=== PATIENT | female | born 1995 | race African-American/Black ===

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

== ENCOUNTER 2019-02-13 23:18 | Emergency (ER) | payer MEDICAID ==
[~2019-02-13] VITALS: Ht 162.6 cm; Wt 60.8 kg
[~2019-02-13 23:18] MED LIST changes: -CEFTIN500 MG ORAL; -KEFLEX500 MG ORAL; +LIDOCAINE700 M1 TP; +METHOCARBAMOL500 MG ORAL; +TAMIFLU75 MG ORAL; -TRAMADOL HCL50 MG ORAL; +TYLENOL EXTRA500 MG ORAL; +ZOFRAN ODT4 MG ORAL
--- NOTE | 2019-02-13 23:34 | NUR ---
ED Nurse Note: Pt ambulated to ED from work c/o hives and itching on R forearm, pt states that she has had this symptom as well as lower lip swelling, bottom of her feet swell and itch as well as difficulty breathing every time she eats something for the past week. Pt denies sob at this time. Pt has not taken any medications. VSS. Pt is A&Ox4
[2019-02-13 23:36] VITALS: BP 134/91
[2019-02-13] MEDS ORDERED: BENADRYL25 MG ORAL (23:44)
[2019-02-13] MEDS ORDERED: PREDNISONE20 MG ORAL (23:44)
[2019-02-13] MEDS ORDERED: Solu-MEDROL 125mg Inj IVP ONE (23:45)
[2019-02-13] MEDS ORDERED: DiphenhydrAMINE 50mg/ml Inj IVP ONE (23:45)
--- NOTE | 2019-02-13 23:45 | Emergency Room Report ---
History of Present Illness General Chief Complaint: Allergic Reaction Source: Patient Present Illness HPI This a 23-year-old female with no past medical history. She presents with complaint of allergic reaction. She was eating a beef dish today and broke out in a rash. This been an intermittent problem for last week. She had different type of food like chicken that she cooked at home for last week. She developed these allergic reaction. She does not know what is causing it. Denies any nausea vomiting. No fever chills but no shortness of breath. Did not take anything for this. Been feeling better with partial resolution of rash since she came in here. Allergies: Coded Allergies: No Known Allergies (Unverified , 02/13/19) Patient History Past Medical History: see triage record, old chart reviewed Past Surgical History: none Pertinent Family History: none Social History: Denies: smoking Last Menstrual Period: 12/30/2018 Now: No Immunizations: other Reviewed Nursing Documentation: PMH: Agreed; PSxH: Agreed Nursing Documentation-PMH Past Medical History: No History, Except For Review of Systems Eye: Denies: eye pain, blurred vision ENT: Denies: ear pain, nose congestion, throat swelling Respiratory: Denies: cough, shortness of breath Cardiovascular: Denies: chest pain, palpitations Gastrointestinal: Denies: abdominal pain, diarrhea, nausea, vomiting Musculoskeletal: Denies: back pain, joint pain Skin: Reports: rash Neurological: Denies: headache, numbness Endocrine: Denies: increased thirst, increased urine Hematologic/Lymphatic: Denies: easy bruising All Other Systems: negative except mentioned in HPI Physical Exam Vital Signs Date Time Temp Pulse Resp B/P (MAP) Pulse Ox O2 Delivery O2 Flow Rate FiO2 02/13/19 23:26 98.2 96 14 134/91 (105) 98 Room Air Vitals normal Sp02 EP Interpretation: reviewed, normal General Appearance: well appearing, no apparent distress, alert Head: normocephalic, atraumatic Eyes: bilateral eye PERRL, bilateral eye EOMI ENT: hearing grossly normal, normal pharynx Neck: full range of motion, supple, no meningismus Respiratory: chest non-tender, lungs clear, normal breath sounds Cardiovascular #1: regular rate, rhythm, no murmur Gastrointestinal: normal bowel sounds, non tender, no mass, no organomegaly, no bruit, non-distended Musculoskeletal: back normal, normal range of motion, gait/station normal Psychiatric: mood/affect normal Skin: other - Scattered urticaria on arms and back Medical Decision Making Diagnostic Impression: Primary Impression: Allergic reaction Qualified Codes: T78.40XA - Allergy, unspecified, initial encounter ER Course This patient presents with allergic reaction. No evidence of anaphylaxis. No respiratory issue. No tongue edema. Since the symptoms been occurring at home with her cooking, this is most likely due to an increase in she been using like a spice or condiment. She will need further testing as an outpatient. Last Vital Signs Date Time Temp Pulse Resp B/P (MAP) Pulse Ox O2 Delivery O2 Flow Rate FiO2 02/13/19 23:36 98.2 96 14 134/91 98 Room Air Status: improved Disposition: HOME, SELF-CARE Condition: Stable Scripts Prednisone* (PREDNISONE*) 20 Mg Tablet 40 MG ORAL DAILY, #10 TAB Prov: Maurisio Davenport MD 02/13/19 Diphenhydramine Hcl* (BENADRYL*) 25 Mg Capsule 50 MG ORAL Q6H PRN for Itching, #30 CAP Prov: Maurisio Davenport MD 02/13/19 Patient Instructions: Food Allergy Additional Instructions: Follow-up with your doctor in a week. You may need a referral to see an technical assistant for skin and allergy testing. You are probably allergic to something that you cook with. This may be a spice or condiment. Return if symptoms worsen. Maurisio Davenport MD Feb 13, 2019 23:45
[2019-02-14 00:25] VITALS: BP 134/91
--- NOTE | 2019-02-14 00:25 | NUR ---
ER DISCHARGE NOTE: Patient is cleared to be discharged per ERMD, pt is aox4, on room air, with stable vital signs. pt was given dc and prescription instructions, pt was able to verbalize understanding, pt id band and iv site removed without complications. pt is able to ambulate with steady gait. pt took all belongings. Pt's rash and hives lessened
== END 2019-02-14 00:25 | disposition home or self-care (01) ==
LOC: EMR 23:39
DX: T78.40XA Allergy, unspecified, initial encounter (principal); X58.XXXA Exposure to other specified factors, initial encounter; Y93.9 Activity, unspecified
CPT/HCPCS: 96374; 96375; J1200; J2930; Z7502; 99284

== ENCOUNTER 2019-04-07 09:57 | Emergency (ER) | payer MEDICAID ==
[~2019-04-07] VITALS: Ht 162.6 cm; Wt 61.2 kg
[~2019-04-07 09:57] MED LIST changes: +BENADRYL25 MG ORAL; +PREDNISONE20 MG ORAL
[2019-04-07 10:03] VITALS: BP 126/88
--- NOTE | 2019-04-07 10:13 | NUR ---
ED Nurse Note: pt. aaox4. ambulatory. walked in to er. per pt. she is here due to swelling on the lip since 1999 yesterday; patient had hives on the wrist, facial swelling yesterday. Patient did not take any meds. Reports no breathing problem. No changes in voice noted.
[2019-04-07] MEDS ORDERED: DiphenhydrAMINE 25mg Tab ORAL ONE (10:45)
[2019-04-07] MEDS ORDERED: PREDNISONE20 MG ORAL (10:54)
[2019-04-07] MEDS ORDERED: BENADRYL25 MG ORAL (10:54)
--- NOTE | 2019-04-07 10:56 | Emergency Room Report ---
History of Present Illness General Chief Complaint: Allergic Reaction Source: Patient Present Illness HPI 23-year-old female presents after increased generalized urticaria as well as some lip swelling. Previous symptoms similarly this in the past. Denies any vomiting. Denies any shortness of breath. Had not eaten any food over the past 1 day. She reports having been referred to an librarian head in the past however had not been able to get an appointment. She had not been on steroids recently. She had previous use of antihistamines as well as oral steroids. Intermittent episodes. She reports having rash to the trunk which had resolved spontaneously. Allergies: Coded Allergies: No Known Allergies (Unverified , 02/13/19) Patient History Past Medical History: see triage record Last Menstrual Period: 03/20/19 Reviewed Nursing Documentation: PMH: Agreed; PSxH: Agreed Nursing Documentation-PMH Past Medical History: No Stated History Review of Systems All Other Systems: negative except mentioned in HPI Physical Exam Vital Signs Date Time Temp Pulse Resp B/P (MAP) Pulse Ox O2 Delivery O2 Flow Rate FiO2 04/07/19 10:03 98.8 79 16 126/88 (101) 99 Room Air General Appearance: well appearing, no apparent distress, alert, GCS 15 Head: normocephalic, atraumatic Eyes: bilateral eye other ENT: hearing grossly normal, normal voice, other - Slight lip swelling Neck: full range of motion, supple Respiratory: no respiratory distress, speaking full sentences Cardiovascular #1: normal inspection, regular rate, rhythm Musculoskeletal: normal inspection Neurologic: alert, motor strength/tone normal, shipping support III-XII nml as tested, oriented x3, normal gait Psychiatric: mood/affect normal Skin: no rash Medical Decision Making Diagnostic Impression: Primary Impression: Allergic reaction ER Course Patient present for skin rash. Differential diagnosis include was not limited to allergic reaction, urticaria angioedema, PUPPs among others. Patient has a benign exam and does not appear to require any imaging or laboratory testing at this time. Patient appears to be stable for outpatient management. She is given Benadryl. Patient to follow-up with her primary care physician. Advised to return if worse. No sign of anaphylaxis Last Vital Signs Date Time Temp Pulse Resp B/P (MAP) Pulse Ox O2 Delivery O2 Flow Rate FiO2 04/07/19 10:03 79 16 Room Air 04/07/19 10:03 98.8 126/88 99 Disposition: HOME, SELF-CARE Condition: Stable Scripts Prednisone* (PREDNISONE*) 20 Mg Tablet 40 MG ORAL DAILY, #10 TAB Prov: Chris Schreiber MD 04/07/19 Diphenhydramine Hcl* (BENADRYL*) 25 Mg Capsule 25 MG ORAL Q6H PRN for Itching, #30 CAP Prov: Chris Schreiber MD 04/07/19 Patient Instructions: Allergies Chris Schreiber MD Apr 07, 2019 10:56
[2019-04-07 11:02] VITALS: BP 132/78
--- NOTE | 2019-04-07 11:02 | NUR ---
ER DISCHARGE NOTE: Patient is cleared to be discharged per ERMD, pt is aox4, on room air, with stable vital signs. pt was given dc and prescription instructions, pt was able to verbalize understanding, pt id band removed. pt is able to ambulate with steady gait. pt took all belongings.
== END 2019-04-07 11:02 | disposition home or self-care (01) ==
LOC: EMR 11:02
DX: T78.40XA Allergy, unspecified, initial encounter (principal); X58.XXXA Exposure to other specified factors, initial encounter
CPT/HCPCS: 81025; Z7502; 99282

== ENCOUNTER 2019-05-21 14:00 | Emergency (ER) | payer MEDICAID ==
[~2019-05-21] VITALS: Ht 162.6 cm; Wt 59.9 kg
[2019-05-21 14:10] VITALS: BP 134/89
--- NOTE | 2019-05-21 14:10 | NUR ---
ED Nurse Note: Patient walked into ED from [facility] c/o pelvic pain with thin, brownich discharge since yesterday. Patient AxO x 4, no s/s of acute distress.
[2019-05-21] MEDS ORDERED: Lidocaine 1% MPF 10mg/ml 5ml INJ ONE (14:30)
[2019-05-21 15:10] LABS: APPEARANCE,URINE CLEAR; BILIRUBIN, URINE NEGATIVE (NEGATIVE); COLOR,URINE YELLOW; GLUCOSE, URINE (UA) NEGATIVE (NEGATIVE); KETONES,URINE NEGATIVE (NEGATIVE); LEUKOCYTE ESTERASE ,URINE 2+ (NEGATIVE); NITRITE,URINE NEGATIVE (NEGATIVE); PH,URINE 6 (4.5-8.0); PROTEIN,URINE 1+ (NEGATIVE); UROBILINOGEN,URINE 1 MG/DL (0.0-1.0)
--- NOTE | 2019-05-21 15:15 | Emergency Room Report ---
History of Present Illness General Chief Complaint: Vaginal Source: Medical Record Present Illness HPI 23-year-old female with no significant past medical history here complaining of 1 day of painful brown vaginal discharge. Reports that was last sexually active 2 days ago. Did not use protection. Not on any control method. Last menstrual period was April 24, 2019.. Complains of suprapubic pain and pressure. Denies any flank pain, fever chills, nausea vomiting. Denies recent travel, URI symptoms. Has not taken medication for symptom relief. Allergies: Coded Allergies: No Known Allergies (Unverified , 02/13/19) COVID-19 Screening Contact w/high risk pt: No Recent Travel to affected area: No Experienced COVID-19 symptoms?: No Patient History Past Medical History: see triage record Past Surgical History: none Pertinent Family History: none Last Menstrual Period: 04/28/19 Immunizations: UTD Reviewed Nursing Documentation: PMH: Agreed; PSxH: Agreed Nursing Documentation-PMH Past Medical History: No History, Except For Review of Systems All Other Systems: negative except mentioned in HPI Physical Exam Vital Signs Date Time Temp Pulse Resp B/P (MAP) Pulse Ox O2 Delivery O2 Flow Rate FiO2 05/21/19 14:05 98.2 99 18 134/89 (104) 96 Room Air Sp02 EP Interpretation: reviewed, normal General Appearance: no apparent distress, alert, GCS 15, non-toxic Head: normocephalic, atraumatic Eyes: bilateral eye normal inspection, bilateral eye PERRL ENT: hearing grossly normal, normal pharynx, no angioedema, normal voice Neck: full range of motion, supple/symm/no masses Respiratory: chest non-tender, lungs clear, normal breath sounds, no rhonchi, no retraction, speaking full sentences Cardiovascular #1: regular rate, rhythm, no edema Gastrointestinal: non tender, soft Genitourinary: no CVA tenderness Musculoskeletal: back normal Neurologic: alert Psychiatric: normal inspection Skin: no rash Lymphatic: normal inspection Medical Decision Making PA Attestation All my diagnosis and treatment plans were reviewed ad discussed with my supervising physician Dr. Calderon Diagnostic Impression: Primary Impression: UTI (urinary tract infection) Additional Impression: STD exposure ER Course 23-year-old female with no significant past medical history here complaining of 1 day of painful brown vaginal discharge. Reports that was last sexually active 2 days ago. Did not use protection. Not on any control method. Last menstrual period was April 24, 2019.. Complains of suprapubic pain and pressure. Denies any flank pain, fever chills, nausea vomiting. Denies recent travel, URI symptoms. Has not taken medication for symptom relief. Ddx considered but are not limited to: UTI, pyelonephritis, urinary incontinence , prolapsed bladder, STD exposure Vital signs: are WNL, pt. is afebrile H&PE are most consistent with: UTI, vaginal discharge due to STD exposure ORDERS: UA, urine cx, urine test, Flagyl, doxycycline, keflex ED INTERVENTIONS: Rocephin DISCHARGE: At this time pt. is stable for d/c to home. Will provide printed patient care instructions, and any necessary prescriptions. Care plan and follow up instructions have been discussed with the patient prior to discharge. At this time no ultrasound needed as patient only has been symptomatic for 1 day. I do not suspect any PID yet however proper treatment were given to prevent PID formation. Patient agrees with prophylactic treatment for chlamydia and gonorrhea and bacterial vaginosis/trichomoniasis. If worsening symptoms return to the emergency room. Advised to use condoms for protection. Last Vital Signs Date Time Temp Pulse Resp B/P (MAP) Pulse Ox O2 Delivery O2 Flow Rate FiO2 05/21/19 14:05 98.2 99 18 134/89 (104) 96 Room Air Disposition: HOME, SELF-CARE Condition: Stable Scripts Cephalexin* (KEFLEX*) 500 Mg Capsule 500 MG ORAL EVERY 12 HOURS for 7 Days, #14 CAP 0 Refills Prov: Clare Jarrell 05/21/19 Metronidazole* (FLAGYL*) 500 Mg Tablet 500 MG ORAL BID for 7 Days, #14 TAB Prov: Clare Jarrell 05/21/19 Doxycycline Hyclate (DOXYCYCLINE HYCLATE) 100 Mg Tablet.dr 100 MG PO BID for 7 Days, #14 TAB Prov: Clare Jarrell 05/21/19 Patient Instructions: Urinary Tract Infection, [id number], Vaginitis Additional Instructions: Take medication as directed, follow-up primary care provider, increase oral hydration, condom use advised Clare Jarrell May 21, 2019 15:15
[2019-05-21] MEDS ORDERED: METRONIDAZOLE500 MG ORAL (15:18)
[2019-05-21] MEDS ORDERED: DOXYCYCLINE HY100 M7 PO (15:18)
[2019-05-21] MEDS ORDERED: CEPHALEXIN500 MG ORAL (15:18)
[2019-05-21 15:20] VITALS: BP 134/89
== END 2019-05-21 15:20 | disposition home or self-care (01) ==
LOC: EMR 14:30
DX: N39.0 Urinary tract infection, site not specified (principal); Z20.2 Contact with and (suspected) exposure to infections with a predominantly sexual mode of transmission
CPT/HCPCS: 81003; 81025; 96372; J0696; Z7502; 99283